=== PATIENT | male | born 1970 ===

== ENCOUNTER 2019-01-30 15:02 | Emergency (ER) | payer SELFPAY ==
--- NOTE | 2019-01-30 15:32 | Event Note ---
ED Screening Note Date of service: 01/30/19 Time: 15:29 ED Screening Note: This is a 48 y.o. M. that presents to the Er with back pain and neck pain s/p fall last night. Patient states he was walking in [employer] when he slipped on liquid in the [place]. Reports feeling okay yesterday and woke up with worsening pain. This initial assessment/diagnostic orders/clinical plan/treatment(s) is/are subject to change based on patients health status, clinical progression and re- assessment by fellow clinical providers in the ED. Further treatment and workup at subsequent clinical providers discretion. Patient/guardian urged not to elope from the ED as their condition may be serious if not clinically assessed and managed. Initial orders include: XR of C-spine and thoracic pain
--- NOTE | 2019-01-30 16:55 | XRay Report ---
Thoracic spine, 3 views INDICATION:Back pain following fall last night FINDINGS: The vertebral body heights and disc spaces are intact. No fracture or subluxation. No signi ficant spurring or arthritic change. No bone lesions or paraspinal masses. No significant abnormality . IMPRESSION: Negative thoracic spine Signer Name: Brandon Good MD Signed: 01/30/2019 4:50 PM Workstation Name: [id number]
--- NOTE | 2019-01-30 16:58 | XRay Report ---
Cervical spine, 3 views INDICATION: Neck pain following fall last night FINDINGS: The vertebral body heights are intact with no compression fractures seen. There is moderate disc space narrowing at C5-C6 and C6-C7 with anterior spurring. The remaining levels are intact. Pre vertebral soft tissues are normal. Odontoid view is unremarkable. No facet arthropathy. No acute trau matic abnormality. Signer Name: Brandon Good MD Signed: 01/30/2019 4:54 PM Workstation Name: [id number]
[2019-01-30] MEDS ORDERED: IBUPROFEN PO ONE (17:07)
[2019-01-30 17:10] VITALS: BP 107/69
[2019-01-30] MEDS ORDERED: NACL 0.9% 1000 ML 1,000 ML IV ONE (17:36)
--- NOTE | 2019-01-30 17:38 | Emergency Department Report ---
<KRISTI DAVIS - Last Filed: 01/30/19 17:55> ED Fall HPI - General Chief Complaint: Fall Stated Complaint: FALL INJURY/BACK/NECK PAIN Time Seen by Provider: 01/30/19 15:29 Source: patient Mode of arrival: Ambulatory - History of Present Illness Initial Comments: 48-year-old male with a past medical history diabetes and hypertension presents to the hospital complaining of neck and back pain status post fall yesterday. [facility] [place] [facility] [place] [facility] [place]. He denies head injury or LOC. He took a friend's Percocet for pain last night. He says that since he urinated last night he has noted some pink discoloration in his urine. Patient states he has a hernia in his left lower quadrant and identified on ultrasound and thinks the fall could've injured his hernia. He currently takes: lisinopril, metformin, hydrochlorothiazide, and asprin - Related Data Previous Rx's Medication Instructions Recorded Last Taken Type HYDROcodone/APAP 5-325 [[place] 1 each PO Q6HR PRN #10 tablet 01/30/19 Unknown Rx 5/325] Allergies Allergy/AdvReac Type Severity Reaction Status Date / Time ketorolac [From Toradol] Allergy Unknown Verified 01/30/19 15:03 ED Review of Systems Comment: All other systems reviewed and negative ED Past Medical Hx - Past Medical History Hx Hypertension: Yes - Surgical History Past Surgical History?: No - Social History Smoking Status: Never Smoker Substance Use Type: None - Medications Home Medications: Home Medications Medication Instructions Recorded Confirmed Last Taken Type HYDROcodone/APAP 5-325 [[place] 1 each PO Q6HR PRN #10 tablet 01/30/19 Unknown Rx 5/325] ED Physical Exam - General Limitations: No Limitations - Other Other exam information: Gen.: No acute distress Head: Atraumatic Eyes: Normal appearance ENT: Moist mucous membranes Neck: Normal appearance, no posterior midline tenderness, no meningismus, paracervical muscle tenderness Chest: Clear to auscultation bilaterally, diffuse posterior thoracic tenderness Cardiovascular: Regular rate and rhythm Abdomen: Normal appearance, soft, nontender, no rebound or guarding, normal bowel sounds Back: Normal appearance, mild diffuse lumbar tenderness with mild tenderness mi dline Extremity: Full range of motion, normal appearance Neuro: Alert, clear speech, no focal motor or sensory deficit Psychiatric: Appropriate Skin: No rash ED Course - Reevaluation(s) Reevaluation #1: 01/30/19 17:59 Repeat vitals were normal however, patient and she declined back x-ray but then told me that his urine was pink in color. Patient did provide a urine sample is actually brown in color therefore UA sent. UA shows a lot of blood. Initial scan was CT without contrast has been ordered as well as labs. Pt signed out to oncoming physician to f/u (Dr Alejandra hanna) ED Medical Decision Making - Lab Data Result diagrams: 01/30/19 17:33 - Differential Diagnosis fracture, contusion, sprain, rhabdomyolysis, renal injury Critical Care Time: No ED Disposition Clinical Impression: Hematuria, Fall, Neck strain, Back strain Disposition: - TO HOME OR SELFCARE Condition: Stable Instructions: Low Back Strain (ED), Acute Hematuria (ED), Cervical Sprain (ED) Additional Instructions: You will need to see a urologist for the blood in your urine. Prescriptions: HYDROcodone/APAP 5-325 [[place] 5/325] 1 each PO Q6HR PRN #10 tablet PRN Reason: Pain Referrals: XAVIER FAN MD [Staff Physician] - 3-5 Days Forms: Work/School Release Form(ED) <MARIEL HANNA - Last Filed: 01/30/19 19:10> ED Review of Systems ROS: Stated complaint: FALL INJURY/BACK/NECK PAIN Other details as noted in HPI ED Course Vital Signs 01/30/19 01/30/19 15:29 17:09 Temperature 98.2 F 98.3 F Pulse Rate 113 H 91 H Respiratory 18 13 Rate Blood Pressure 113/76 Blood Pressure 107/69 [Left] O2 Sat by Pulse 98 98 Oximetry ED Medical Decision Making - Lab Data Result diagrams: 01/30/19 17:33 01/30/19 17:41 Laboratory Results - last 24 hr 01/30/19 01/30/19 01/30/19 17:33 17:41 Unknown WBC 5.0 RBC 4.95 Hgb 13.4 Hct 41.4 MCV 84 MCH 27 L MCHC 32 RDW 15.7 H Plt Count 246 Lymph % (Auto) 32.2 [place] % (Auto) 6.9 Eos % (Auto) 1.6 Baso % (Auto) 2.4 H Lymph # 1.6 [place] # 0.3 Eos # 0.1 Baso # 0.1 Seg Neutrophils % 56.9 Seg Neutrophils # 2.9 Sodium 142 Potassium 3.9 Chloride 101.1 Carbon Dioxide 24 Anion Gap 21 BUN 15 Creatinine 1.0 Estimated GFR > 60 BUN/Creatinine Ratio 15 Glucose 156 H Calcium 9.6 Total Bilirubin < 0.20 AST 24 ALT 35 Alkaline Phosphatase 77 Total Creatine Kinase 726 H Total Protein 7.6 Albumin 4.3 Albumin/Globulin Ratio 1.3 Urine Color Red Urine Turbidity Cloudy Urine pH 5.0 Ur Specific [place] 1.033 H Urine Protein 100 mg/dl Urine Glucose (UA) 50 Urine Ketones Neg Urine Blood Lg Urine Nitrite Neg Urine Bilirubin Neg Urine Urobilinogen < 2.0 Ur Leukocyte Esterase Neg Urine WBC (Auto) < 1.0 Urine RBC (Auto) > 182.0 Urine Mucus 3+ Urine Opiates Screen Urine Methadone Screen Ur Barbiturates Screen Ur Phencyclidine Scrn Ur Amphetamines Screen U Benzodiazepines Scrn Urine Cocaine Screen U Marijuana (THC) Screen Drugs of Abuse Note 01/30/19 Unknown WBC RBC Hgb Hct MCV MCH MCHC RDW Plt Count Lymph % (Auto) [place] % (Auto) Eos % (Auto) Baso % (Auto) Lymph # [place] # Eos # Baso # Seg Neutrophils % Seg Neutrophils # Sodium Potassium Chloride Carbon Dioxide Anion Gap BUN Creatinine Estimated GFR BUN/Creatinine Ratio Glucose Calcium Total Bilirubin AST ALT Alkaline Phosphatase Total Creatine Kinase Total Protein Albumin Albumin/Globulin Ratio Urine Color Urine Turbidity Urine pH Ur Specific [place] Urine Protein Urine Glucose (UA) Urine Ketones Urine Blood Urine Nitrite Urine Bilirubin Urine Urobilinogen Ur Leukocyte Esterase Urine WBC (Auto) Urine RBC (Auto) Urine Mucus Urine Opiates Screen Presumptive negative Urine Methadone Screen Presumptive negative Ur Barbiturates Screen Presumptive negative Ur Phencyclidine Scrn Presumptive negative Ur Amphetamines Screen Presumptive negative U Benzodiazepines Scrn Presumptive negative Urine Cocaine Screen Presumptive negative U Marijuana (THC) Screen Presumptive negative Drugs of Abuse Note Disclamer - Medical Decision Making I assumed care for this patient from my colleague Dr. Davis. I evaluated Mr. Rodrigez who is a 48 yo male who presents with back and neck pain s/p fall at grocery store. He noticed pink urine this morning. He now has dark urine here in the ED, observed by my colleague. UA revealed gross hematuria. CT A/P did not reveal abnormality of the tract. With this type of trauma, renal, bladder, urethral, ureteral injury would be highly unlikely. Mr. Rodrigez appears well. Hemoglobin and hematocrit are within normal limits. Renal function is normal, He is ambulatory without difficulty. CK is elevated, however, level is below the normal cutoff of 5 times the upper limit of normal reference range in order to diagnose rhabdomyolysis. At this level likelihood of developing acute renal failure is highly unlikely. Urinalysis does not reveal any of myoglobinuria. He does have gross hematuria. Referred to urology Mr. Rodrigez received IV fluid therapy. He understands to continue to hydrate. Critical care attestation.: If time is entered above; I have spent that time in minutes in the direct care of this critically ill patient, excluding procedure time. ED Disposition Is pt being admited?: No Does the pt Need Aspirin: No
[2019-01-30 17:44] LABS: Bilirubin,Urine NEG (Negative); Blood,Urine LG (Negative); Color,Urine Red (Yellow); Mucus,Urine 3+ /HPF; Urobilinogen,Urine < 2.0 mg/dL (<2.0)
[2019-01-30 17:45] LABS: RBC,Urine > 182.0 /HPF (0.0-6.0); WBC,Urine < 1.0 /HPF (0.0-6.0)
[2019-01-30 17:53] LABS: Basophils # (Auto) 0.1 K/mm3 (0.0-0.1); Basophils % (Auto) 2.4 % (0.0-1.8); Eosinophils # (Auto) 0.1 K/mm3 (0.0-0.4); Eosinophils % (Auto) 1.6 % (0.0-4.3); Hematocrit 41.4 % (35.5-45.6); Hemoglobin 13.4 gm/dl (11.8-15.2); Lymphocytes # (Auto) 1.6 K/mm3 (1.2-5.4); Lymphocytes % (Auto) 32.2 % (13.4-35.0); Mean Corpuscular HGB Conc 32 % (32-34); Mean Corpuscular Volume 84 fl (84-94); Monocytes # (Auto) 0.3 K/mm3 (0.0-0.8); Monocytes % (Auto) 6.9 % (0.0-7.3); Platelet Count 246 K/mm3 (140-440); Red Blood Count 4.95 M/mm3 (3.65-5.03); Red Cell Distribution Width 15.7 % (13.2-15.2)
[2019-01-30 17:59] LABS: Amphetamine Screen,Urine PRESUMPTIVE NEGATIVE; Benzodiazepines Screen,Urine PRESUMPTIVE NEGATIVE; Cannabinoid Screen,Urine PRESUMPTIVE NEGATIVE; Cocaine Screen,Urine PRESUMPTIVE NEGATIVE; Methadone Screen,Urine PRESUMPTIVE NEGATIVE; Opiate Screen,Urine PRESUMPTIVE NEGATIVE
[2019-01-30 18:13] LABS: Alanine Aminotransferase 35 units/L (7-56); Albumin 4.3 g/dL (3.9-5); BUN/Creatinine Ratio 15; Blood Urea Nitrogen 15 mg/dL (9-20); Calcium 9.6 mg/dL (8.4-10.2); Hemolysis Index 13
--- NOTE | 2019-01-30 18:51 | Cat Scan Report ---
CT of the abdomen and pelvis without contrast INDICATION: Back pain and hematuria COMPARISON: None FINDINGS: Lung bases are clear. The liver, spleen, pancreas, adrenal glands and kidneys all appear no rmal. No definite gallbladder or biliary tree abnormality. No fluid or adenopathy in the upper abdome n. CT of the pelvis shows no ureteral stones. No stone fragments seen in the bladder. Appendix is normal . Prostate is not enlarged. No pelvic fluid or adenopathy. No diverticulosis or diverticulitis. No de finite fracture is seen. IMPRESSION: No significant abnormality. Automated exposure control was utilized to diminish radiation dose. Signer Name: Brandon Good MD Signed: 01/30/2019 6:47 PM Workstation Name: [id number]
== END 2019-01-30 19:20 | disposition home or self-care (01) ==
LOC: ED 15:02
DX: S16.1XXA Strain of muscle, fascia and tendon at neck level, initial encounter (principal); S39.012A Strain of muscle, fascia and tendon of lower back, initial encounter; R31.9 Hematuria, unspecified; I10 Essential (primary) hypertension; Z88.6 Allergy status to analgesic agent; W01.0XXA Fall on same level from slipping, tripping and stumbling without subsequent striking against object, initial encounter; Y93.89 Activity, other specified; Y92.89 Other specified places as the place of occurrence of the external cause; Y99.8 Other external cause status
CPT/HCPCS: 36415; 72040; 72070; 74176; 80053; 80307; 81001; 82550; 85025; 99284; J7030

== ENCOUNTER 2019-02-10 01:51 | Emergency (ER) | payer SELFPAY ==
[2019-02-10 02:13] VITALS: BP 138/92
[2019-02-10 02:49] LABS: Basophils % (Auto) 0.8 % (0.0-1.8); Eosinophils # (Auto) 0.1 K/mm3 (0.0-0.4); Eosinophils % (Auto) 1.4 % (0.0-4.3); Hematocrit 41.3 % (35.5-45.6); Hemoglobin 13.2 gm/dl (11.8-15.2); Lymphocytes # (Auto) 1.4 K/mm3 (1.2-5.4); Lymphocytes % (Auto) 25.6 % (13.4-35.0); Mean Corpuscular HGB Conc 32 % (32-34); Mean Corpuscular Volume 84 fl (84-94); Monocytes # (Auto) 0.6 K/mm3 (0.0-0.8); Monocytes % (Auto) 10.6 % (0.0-7.3); Platelet Count 245 K/mm3 (140-440); Red Cell Distribution Width 15.9 % (13.2-15.2)
[2019-02-10 03:09] LABS: BUN/Creatinine Ratio 21; Blood Urea Nitrogen 19 mg/dL (9-20); Calcium 9.4 mg/dL (8.4-10.2); Hemolysis Index 7
== END 2019-02-10 04:17 | disposition left against medical advice (07) ==
LOC: ED 01:51
DX: R42 Dizziness and giddiness (principal); Z53.21 Procedure and treatment not carried out due to patient leaving prior to being seen by health care provider
CPT/HCPCS: 36415; 80048; 85025

== ENCOUNTER 2019-03-10 16:15 | Emergency (ER) | payer SELFPAY ==
[2019-03-10 17:15] LABS: Bilirubin,Urine NEG (Negative); Blood,Urine LG (Negative); Color,Urine Amber (Yellow); Mucus,Urine 2+ /HPF; RBC,Urine > 182.0 /HPF (0.0-6.0); Sperm,Urine 2+ /HPF (NP); Urobilinogen,Urine < 2.0 mg/dL (<2.0)
[2019-03-10 17:16] LABS: WBC,Urine > 182.0 /HPF (0.0-6.0)
[2019-03-10 17:24] LABS: Amphetamine Screen,Urine PRESUMPTIVE NEGATIVE; Benzodiazepines Screen,Urine PRESUMPTIVE NEGATIVE; Cannabinoid Screen,Urine PRESUMPTIVE NEGATIVE; Cocaine Screen,Urine PRESUMPTIVE NEGATIVE; Methadone Screen,Urine PRESUMPTIVE NEGATIVE; Opiate Screen,Urine PRESUMPTIVE NEGATIVE
[2019-03-10 17:28] LABS: Basophils # (Auto) 0.1 K/mm3 (0.0-0.1); Basophils % (Auto) 1.8 % (0.0-1.8); Eosinophils % (Auto) 0.9 % (0.0-4.3); Hematocrit 43.5 % (35.5-45.6); Hemoglobin 13.8 gm/dl (11.8-15.2); Lymphocytes % (Auto) 27.1 % (13.4-35.0); Mean Corpuscular HGB Conc 32 % (32-34); Mean Corpuscular Volume 84 fl (84-94); Monocytes # (Auto) 0.4 K/mm3 (0.0-0.8); Monocytes % (Auto) 10.7 % (0.0-7.3); Platelet Count 244 K/mm3 (140-440); Red Blood Count 5.18 M/mm3 (3.65-5.03); Red Cell Distribution Width 15.6 % (13.2-15.2)
[2019-03-10 17:34] LABS: Alanine Aminotransferase 39 units/L (7-56); Albumin 4.3 g/dL (3.9-5); BUN/Creatinine Ratio 13; Blood Urea Nitrogen 14 mg/dL (9-20); Calcium 9.5 mg/dL (8.4-10.2); Hemolysis Index 5
--- NOTE | 2019-03-10 18:22 | Emergency Department Report ---
ED Psych HPI - General Chief Complaint: Psych Stated Complaint: SUICIDAL IDEALATIONS Time Seen by Provider: 03/10/19 17:02 Source: patient, EMS Mode of arrival: Stretcher - History of Present Illness Initial Comments: Patient is 48 years old male with history of schizophrenia and bipolar disorder. Patient presented to the ER accompanied by his girlfriend stating that he feels depressed and he had some suicidal thoughts. Patient stated that he is thinking of overdosing on medication. Patient denied any homicidal ideation. No visual or auditory hallucination. MD Complaint: suicidal ideation, feels depressed - Related Data Home Medications Medication Instructions Recorded Confirmed Last Taken Aspirin [Aspirin BABY CHEW TAB] 1 tab PO QDAY 03/10/19 03/10/19 Unknown HCTZ 25 mg PO DAILY 03/10/19 03/10/19 Unknown Lisinopril [Zestril TAB] 1 tab PO DAILY 03/10/19 03/10/19 Unknown Metoprolol [Lopressor TAB] 1 tab PO DAILY 03/10/19 03/10/19 Unknown metFORMIN [Glucophage] 1 tab PO BID 03/10/19 03/10/19 Unknown Allergies Allergy/AdvReac Type Severity Reaction Status Date / Time ketorolac [From Toradol] Allergy Unknown Verified 01/30/19 15:03 ED Review of Systems ROS: Stated complaint: SUICIDAL IDEALATIONS Other details as noted in HPI Comment: All other systems reviewed and negative Constitutional: denies: chills, fever Respiratory: denies: cough, shortness of breath, SOB with exertion Cardiovascular: denies: chest pain, palpitations Gastrointestinal: denies: abdominal pain, nausea, vomiting Musculoskeletal: denies: back pain Neurological: denies: headache, weakness, numbness, paresthesias, confusion, abnormal gait ED Past Medical Hx - Past Medical History Hx Hypertension: Yes Hx Diabetes: Yes Hx Psychiatric Treatment: Yes (Biploar, schizophrenia) - Surgical History Past Surgical History?: No - Social History Smoking Status: Never Smoker Substance Use Type: None - Medications Home Medications: Home Medications Medication Instructions Recorded Confirmed Last Taken Type Aspirin [Aspirin BABY CHEW TAB] 1 tab PO QDAY 03/10/19 03/10/19 Unknown History HCTZ 25 mg PO DAILY 03/10/19 03/10/19 Unknown History Lisinopril [Zestril TAB] 1 tab PO DAILY 03/10/19 03/10/19 Unknown History Metoprolol [Lopressor TAB] 1 tab PO DAILY 03/10/19 03/10/19 Unknown History metFORMIN [Glucophage] 1 tab PO BID 03/10/19 03/10/19 Unknown History ED Physical Exam - General Limitations: No Limitations General appearance: alert, in no apparent distress - Head Head exam: Present: atraumatic, normocephalic, normal inspection - Eye Eye exam: Present: normal appearance - ENT ENT exam: Present: normal exam, normal orophraynx, mucous membranes moist - Neck Neck exam: Present: normal inspection, full ROM. Absent: tenderness, men ingismus, lymphadenopathy, thyromegaly - Respiratory Respiratory exam: Present: normal lung sounds bilaterally - Cardiovascular Cardiovascular Exam: Present: regular rate, normal rhythm, normal heart sounds - GI/Abdominal GI/Abdominal exam: Present: soft, normal bowel sounds. Absent: distended, tenderness, guarding, rebound, rigid, organomegaly, mass, bruit, pulsatile mass, hernia - Extremities Exam Extremities exam: Present: normal inspection, full ROM, normal capillary refill. Absent: tenderness, pedal edema, calf tenderness - Back Exam Back exam: Present: normal inspection, full ROM. Absent: CVA tenderness (R), CVA tenderness (L), muscle spasm, paraspinal tenderness, vertebral tenderness - Neurological Exam Neurological exam: Present: alert, oriented X3, CN II-XII intact, normal gait, reflexes normal - Psychiatric Psychiatric exam: Present: depressed, suicidal ideation. Absent: agitated, anxious, flat affect, manic, homicidal ideation - Skin Skin exam: Present: warm, intact, normal color ED Course Vital Signs 03/10/19 03/10/19 03/11/19 16:42 20:10 01:30 Temperature 98.2 F 98 F 98.5 F Pulse Rate 80 76 74 Respiratory 16 18 16 Rate Blood Pressure 125/80 Blood Pressure 128/88 131/90 [Right] O2 Sat by Pulse 100 98 98 Oximetry 03/11/19 03/11/19 03/11/19 08:46 10:06 10:09 Temperature 97.8 F Pulse Rate 72 72 72 Respiratory 15 Rate Blood Pressure 160/107 160/107 Blood Pressure 149/103 [Right] O2 Sat by Pulse 99 Oximetry 03/11/19 03/11/19 03/12/19 17:09 19:20 01:30 Temperature 98.5 F 98.3 F 97.9 F Pulse Rate 67 72 80 Respiratory 18 16 Rate Blood Pressure Blood Pressure 157/105 147/97 143/96 [Right] O2 Sat by Pulse 99 98 97 Oximetry 03/12/19 03/12/19 03/12/19 07:18 07:45 10:08 Temperature 98.8 F 98.8 F Pulse Rate 83 86 70 Respiratory 20 20 17 Rate Blood Pressure 137/93 Blood Pressure 137/93 117/67 [Right] O2 Sat by Pulse 99 99 94 Oximetry ED Medical Decision Making - Lab Data Result diagrams: 03/10/19 17:00 03/10/19 17:00 Critical care attestation.: If time is entered above; I have spent that time in minutes in the direct care of this critically ill patient, excluding procedure time. ED Disposition Clinical Impression: Depression, Suicidal ideation Disposition: DC-01 TO HOME OR SELFCARE Is pt being admited?: No Condition: Stable Referrals: PRIMARY CARE, [Primary Care Provider] - 3-5 Days Forms: Work/School Release Form(ED)
[2019-03-10] MEDS: levoFLOXacin 500 MG TAB PO SCH (21:35)
[2019-03-10] MEDS ORDERED: ZIPRASIDONE MESYLATE 20 MG VIAL IM ONE (21:52)
[2019-03-10] MEDS ORDERED: WATER FOR INJ Sterile (PF) 10 ML ONE (21:52)
[2019-03-10] MEDS: ZIPRASIDONE MESYLATE 20 MG VIAL IM ONE (22:20)
[2019-03-11] MEDS: ZIPRASIDONE MESYLATE 20 MG VIAL IM ONE (01:50)
--- NOTE | 2019-03-11 09:46 | Consultation ---
History of Present Illness - Reason for Consult Consult date: 03/11/19 Reason for consult: Mental Health Evaluation Requesting physician: TRES AGUIRRE - Chief Complaint Chief complaint: "I didn't say anything about hurting myself" - History of Present Psychiatric Illness 48 y.o. AA male who presented to the ER for SI's. Today the patient was anxious during the assessment. He stated that he had an argument with his girlfriend at home that escalated to him being brought to the ER. He stated that he may have gestured SI's to EMS personnel, but didn't mean it. He stated that he do not remember saying anything like that to the staff during triage. He denies any previous self harm behavior in the past nor suicide attempts when asked. He stated that he feel "overwhelmed" being in the ER. He denies SI/HI's and AVH's. He denies recreational drug use and alcohol consumption (etoh). Medications and Allergies Allergies Allergy/AdvReac Type Severity Reaction Status Date / Time ketorolac [From Toradol] Allergy Unknown Verified 01/30/19 15:03 Home Medications Medication Instructions Recorded Confirmed Last Taken Type Aspirin [Aspirin BABY CHEW TAB] 1 tab PO QDAY 03/10/19 03/10/19 Unknown History HCTZ 25 mg PO DAILY 03/10/19 03/10/19 Unknown History Lisinopril [Zestril TAB] 1 tab PO DAILY 03/10/19 03/10/19 Unknown History Metoprolol [Lopressor TAB] 1 tab PO DAILY 03/10/19 03/10/19 Unknown History metFORMIN [Glucophage] 1 tab PO BID 03/10/19 03/10/19 Unknown History Active Meds: Active Medications Levofloxacin (Levaquin) 500 mg PO DAILY [facility] Last Admin: 03/10/19 21:35 Dose: 500 mg Documented by: Lisinopril (Zestril) 40 mg PO DAILY [facility] Metoprolol Tartrate (Metoprolol) 100 mg PO DAILY [facility] Past psychiatric history - Past Medical History Past Medical History: No medical history Past Surgical History: No surgical history - past Psychiatric treatment and history psychiatric treatment history: Denies a psy hx and fam psy hx. - Social History Social history: lives with family Mental Status Exam - Vital signs Last Vital Signs Temp 97.8 F 03/11/19 08:46 Pulse 72 03/11/19 08:46 Resp 15 03/11/19 08:46 BP 149/103 03/11/19 08:46 Pulse Ox 99 03/11/19 08:46 - Exam Narrative exam: MSE: Appearance: calm, cooperative Behavior: regular eye contact Speech: regular rate and tone Mood: "okay" Affect: congruent to mood Thought Process: circumstantial Thought Content: denies SI/HI's and AVH's Motor Activity: lying in bed Cognition: A/O x3 Insight: fair Judgment: variable Results Result Diagrams: 03/10/19 17:00 03/10/19 17:00 Abnormal lab results 03/10/19 03/10/19 03/10/19 Range/Units 16:55 17:00 17:00 WBC 3.8 L (4.5-11.0) K/mm3 RBC 5.18 H (3.65-5.03) M/mm3 MCH 27 L (28-32) pg RDW 15.6 H (13.2-15.2) % [place] % (Auto) 10.7 H (0.0-7.3) % Lymph # 1.0 L (1.2-5.4) K/mm3 APTT (24.2-36.6) Sec. Glucose (75-100) mg/dL Urine WBC (Auto) > 182.0 H (0.0-6.0) /HPF Salicylates < 0.3 L (2.8-20.0) mg/dL Acetaminophen (10.0-30.0) ug/mL 03/10/19 03/10/19 03/10/19 Range/Units 17:00 17:00 17:00 WBC (4.5-11.0) K/mm3 RBC (3.65-5.03) M/mm3 MCH (28-32) pg RDW (13.2-15.2) % [place] % (Auto) (0.0-7.3) % Lymph # (1.2-5.4) K/mm3 APTT 40.0 H (24.2-36.6) Sec. Glucose 142 H (75-100) mg/dL Urine WBC (Auto) (0.0-6.0) /HPF Salicylates (2.8-20.0) mg/dL Acetaminophen < 5.0 L (10.0-30.0) ug/mL All other labs normal. Assessment and Plan Assessment and plan: Impression: Today the patient was anxious during the assessment. Recommendation/Plan: Continue 1013 and gather collateral information. Start Buspar 7.5 mg PO BID and Melatonin 5 mg PO HS for sleep. Dispo: Once colletaral information is gathered proper dispo will be determined. Staffed with Dr John Puentes.
[2019-03-11] MEDS ORDERED: LISINOPRIL 40 MG TAB PO SCH (10:00)
[2019-03-11] MEDS ORDERED: METOPROLOL TARTRATE 100 MG TAB PO SCH (10:00)
[2019-03-11] MEDS: levoFLOXacin 500 MG TAB PO SCH (10:06)
[2019-03-11] MEDS: busPIRone 5 MG TAB PO SCH ×2 (10:13→22:06)
[2019-03-11] MEDS ORDERED: NON-FORMULARY EACH (Hctz 25 MG) PO SCH (17:15)
[2019-03-11] MEDS: hydroCHLOROthiazide 25 MG TAB PO SCH (17:30)
[2019-03-11] MEDS ORDERED: MELATONIN 5 MG TAB PO SCH (22:00)
--- NOTE | 2019-03-12 09:47 | Progress Note ---
Subjective - Reason for Consult Consult date: 03/12/19 Reason for consult: Psychiatry Follow-up - Chief Complaint Chief complaint: "I will do better" 48 y.o. AA male who presented to the ER for SI's. Today the patient was calm and cooperative during the assessment. Per collateral information from the patient's girlfriend Denise Lopez at [phone], she stated that they had a argument and the patient stated self harm out of anger. She denies any previous suicide attempts or gestures in the past. The patient denies SI/HI's and AVH's. Mental Status Exam - Vital signs Last Vital Signs Temp 98.8 F 03/12/19 07:45 Pulse 86 03/12/19 07:45 Resp 20 03/12/19 07:45 BP 137/93 03/12/19 07:45 Pulse Ox 99 03/12/19 07:45 - Exam Narrative exam: MSE: Appearance: calm, cooperative Behavior: regular eye contact Speech: regular rate and tone Mood: "okay" Affect: congruent to mood Thought Process: linear Thought Content: denies SI/HI's and AVH's Motor Activity: lying in bed Cognition: A/O x3 Insight: appropriate Judgment: appropriate Assessment and Plan Impression: Today the patient was calm and cooperative during the assessment. The patient is no threat to self. Recommendation/Plan: Rescind 1013. Discussed generalized coping skills with the patient, he verbalized understanding. Dispo: The patient can follow up with his PCP. Staffed with Dr John Puentes.
[2019-03-12 10:09] VITALS: BP 117/67
[2019-03-12] MEDS: busPIRone 5 MG TAB PO SCH (10:45)
[2019-03-12] MEDS: levoFLOXacin 500 MG TAB PO SCH (10:45)
[2019-03-12] MEDS: hydroCHLOROthiazide 25 MG TAB PO SCH (10:45)
== END 2019-03-12 10:46 | disposition home or self-care (01) ==
LOC: ED 16:15 → EEVIPCON 16:15 → ED 03-12 10:07
DX: F32.9 Major depressive disorder, single episode, unspecified (principal); F20.9 Schizophrenia, unspecified; I10 Essential (primary) hypertension; Z88.6 Allergy status to analgesic agent
CPT/HCPCS: 36415; 80053; 80307; 81001; 85025; 85610; 85730; 93005; 93010; 99284; J3486; 80320; 82962; G0480

== ENCOUNTER 2019-06-05 20:33 | Emergency (ER) | payer SELFPAY ==
[2019-06-05 20:49] VITALS: BP 165/105
--- NOTE | 2019-06-05 20:53 | Event Note ---
ED Screening Note ED Screening Note: bilateral testicle swelling that began yesterday states he has a "knot in the left testicle" +testicle pain no fever no n/v/d no urinary sx no penile discharge never happened before PMHx HTN, DM, bipolar, schizophrenia allergy: toradol This initial assessment/diagnostic orders/clinical plan/treatment(s) is/are subject to change based on patients health status, clinical progression and re- assessment by fellow clinical providers in the ED. Further treatment and workup at subsequent clinical providers discretion. Patient/guardian urged not to elope from the ED as their condition may be serious if not clinically assessed and managed. Initial orders include: US, UA
[2019-06-05 21:28] LABS: Bilirubin,Urine NEG (Negative); Blood,Urine NEG (Negative); Color,Urine Yellow (Yellow); Mucus,Urine FEW /HPF; Protein,Urine <15 mg/dL mg/dL (Negative); Urobilinogen,Urine < 2.0 mg/dL (<2.0)
--- NOTE | 2019-06-05 23:05 | Ultrasound Report ---
ULTRASOUND SCROTUM INDICATION: bilateral testicular edema, "knot in left testicle. COMPARISON None available. FINDINGS -- RIGHT TESTIS: Size: 4.6 x 2.7 x 3.5 cm. Echotexture: Normal. Color Doppler Flow: Normal. Lesions: None. EPIDIDYMIS: Size: Normal. Echotexture: Normal. Color Doppler Flow: Normal. Lesions: There are cou ple tiny epididymal head cysts versus spermatoceles. Hydrocele: None. Varicocele: None. Additional Findings: None. FINDINGS -- LEFT TESTIS: Size: 4.9 x 2.2 x 3.4 cm. Echotexture: Normal. Color Doppler Flow: Normal. Lesions: None. EPIDIDYMIS: Size: Normal. Echotexture: Normal. Color Doppler Flow: Mildly increased Lesions: Ther e is a 6 mm left epididymal head cyst. Hydrocele: None. Varicocele: None. Additional Findings: None. IMPRESSION: 1. No significant testicular abnormality. 2. Tiny subcentimeter bilateral epididymal head cysts versus spermatoceles. 3. The left epididymis appears somewhat hypervascular, correlate clinically for mild left epididymiti s. Signer Name: Jeremie Xiao MD Signed: 06/05/2019 11:01 PM Workstation Name: [id number]
== END 2019-06-06 00:38 | disposition left against medical advice (07) ==
LOC: ED 20:33
DX: N44.8 Other noninflammatory disorders of the testis (principal); F20.9 Schizophrenia, unspecified; I10 Essential (primary) hypertension; Z53.21 Procedure and treatment not carried out due to patient leaving prior to being seen by health care provider
CPT/HCPCS: 81001; 93975